=== PATIENT | male | born 1965 | race Caucasian/White ===

== ENCOUNTER 2022-02-22 21:20 | Emergency (ER) | payer OTHER ==
[2022-02-22 21:57] VITALS: BP 140/60; PULSE 77; TEMP 98.7; BMI 26.6
== END 2022-02-22 22:48 | disposition home or self-care (01) ==
LOC: FER 21:20
DX: L25.5 Unspecified contact dermatitis due to plants, except food (principal)
CPT/HCPCS: 99281-25

== ENCOUNTER 2024-06-16 14:38 | Emergency (ER) | payer OTHER ==
[2024-06-16] MEDS ORDERED: METHOCARBAMOL 500 MG TABLET ONE (15:12)
[2024-06-16] MEDS ORDERED: KETOROLAC TROMETHAMINE 30 MG/1 ML VIAL ONE (15:13)
[2024-06-16] MEDS ORDERED: LIDOCAINE 5% TOPICAL PATCH ONE (15:13)
[2024-06-16] MEDS: LIDOCAINE 5% TOPICAL PATCH TP ONE (15:20)
[2024-06-16] MEDS: METHOCARBAMOL 500 MG TABLET PO ONE (15:20)
[2024-06-16] MEDS: KETOROLAC TROMETHAMINE 30 MG/1 ML VIAL IM ONE (15:21)
[2024-06-16 15:46] VITALS: BP 152/80; PULSE 80; RESP 16; TEMP 98.4; BMI 27.4
[2024-06-16] MEDS ORDERED: LIDOCAINE PATCH REMOVAL MC SCH (22:00)
== END 2024-06-16 17:14 | disposition home or self-care (01) ==
LOC: FER 14:38
PROC: 3E0133Z Introduction of Anti-inflammatory into Subcutaneous Tissue, Percutaneous Approach (ICD-10-PCS; principal; 2024-06-16)
DX: M54.50 Low back pain, unspecified (principal); X50.1XXA Overexertion from prolonged static or awkward postures, initial encounter
CPT/HCPCS: 81003; 99284-25

== ENCOUNTER 2024-06-24 12:32 | Inpatient (IN) | payer OTHER ==
[2024-06-24] MEDS ORDERED: PIPERACILLIN/TAZOB 3.375 GM 3.375 GM/50 ML BAG IVPB ONE (13:33)
[2024-06-24] MEDS: PIPERACILLIN/TAZOB 3.375 GM 3.375 GM in DEXTROSE 5%-WATER - 50 ML IVPB ONE (13:51)
[2024-06-24] MEDS: LACTATED RINGERS SOLUTION 1000 ML INFUS.BAG IV ONE (13:51)
[2024-06-24 14:08] LABS: BASO % 0.8 % (0-2.0); EOS % 0.8 % (0-4.5); LYMPH % 40.4 % (8-40); MCH 33.2 pg (25.7-33.7); MCHC 34.1 g/dl (32.0-35.9); MEAN CELL VOLUME 97.5 fl (80-96); MEAN PLT VOLUME 9.1 fl (7.5-11.1); MONO % 11.9 % (3.8-10.2); NEUT % 46.1 % (42.8-82.8); PLATELET COUNT 223 10^3/uL (134-434); RBC 4.52 M/mm3 (4.00-5.60); WHITE BLOOD COUNT 4.7 K/mm3 (4.0-10.0)
[2024-06-24] MEDS ORDERED: VANCOMYCIN 1 GRAM (PRE-DOCKED) 1,000 MG/250 ML BAG IVPB ONE (14:08)
[2024-06-24 14:15] LABS: INR 1.1 (0.83-1.09); PROTHROMBIN TIME (PATIENT) 12.6 SEC (9.7-13.0)
[2024-06-24] MEDS: VANCOMYCIN 1,000 MG in DEXTROSE 5%-WATER - 250 ML IVPB ONE (14:17)
[2024-06-24 14:18] LABS: ACTIVATED PTT 30.6 SECONDS (25.2-36.5)
[2024-06-24 14:21] LABS: URINE APPEARANCE TURBID; URINE BILIRUBIN NEGATIVE (NEGATIVE); URINE COLOR YELLOW; URINE GLUCOSE (UA) NEGATIVE (NEGATIVE); URINE KETONE NEGATIVE (NEGATIVE); URINE LEUK ESTERASE NEGATIVE (NEGATIVE); URINE NITRITE NEGATIVE (NEGATIVE); URINE PROTEIN NEGATIVE (NEGATIVE); URINE UROBILINOGEN 0.2 mg/dL (0.2-1.0)
[2024-06-24 14:32] LABS: POTASSIUM 4.3 mmol/L (3.5-5.1)
[2024-06-24 14:34] LABS: ALBUMIN 3.2 g/dl (3.4-5.0); BLOOD UREA NITROGEN 11.8 mg/dL (7-18)
[2024-06-24 14:38] LABS: CREATININE 0.8 mg/dL (0.55-1.3)
[2024-06-24 14:39] LABS: TOT PROT 7.1 g/dl (6.4-8.2)
[2024-06-24 14:51] LABS: BILIRUBIN,TOTAL 0.7 mg/dL (0.2-1)
[2024-06-24 14:54] LABS: ERYTHROCYTE SEDIMENTATION RATE 6 mm/hr (0-20)
[2024-06-25 02:17] VITALS: BMI 28.0
[2024-06-25] MEDS ORDERED: ACETAMINOPHEN 1000 MG/100 ML BAG IVPB PRN (08:17)
[2024-06-25] MEDS ORDERED: SENNOSIDES/DOCUSATE COMBO (SENNA PLUS) TABLET (UD) PO PRN (08:19)
[2024-06-25 09:49] LABS: HEMATOCRIT 47.6 % (35.4-49); MCH 33.2 pg (25.7-33.7); MCHC 33.5 g/dl (32.0-35.9); MEAN PLT VOLUME 9.3 fl (7.5-11.1); PLATELET COUNT 232 10^3/uL (134-434); RDW 13.1 % (11.9-15.9); WHITE BLOOD COUNT 5.6 K/mm3 (4.0-10.0)
[2024-06-25] MEDS: PIPERACILLIN/TAZOB 3.375 GM 3.375 GM in DEXTROSE 5%-WATER - 50 ML IVPB SCH ×2 (10:03→14:51)
[2024-06-25] MEDS: ENOXAPARIN NA (PORCINE) 40 MG/0.4 ML DISP.SYRIN SQ SCH (10:03)
[2024-06-25] MEDS: VANCOMYCIN/WATER FOR INJ (PEG) 1,000 MG/200 ML BAG IVPB SCH (10:40)
[2024-06-25] MEDS: VANCOMYCIN 1 GM PREMIX - 1 GM/200 ML BAG IVPB SCH ×2 (10:49→14:50)
[2024-06-25 11:41] LABS: POTASSIUM 4.1 mmol/L (3.5-5.1)
[2024-06-25 11:44] LABS: CALCIUM 9.7 mg/dL (8.5-10.1)
[2024-06-25 11:45] LABS: ALBUMIN 3.4 g/dl (3.4-5.0); BLOOD UREA NITROGEN 8.7 mg/dL (7-18)
[2024-06-25 11:48] LABS: CREATININE 0.9 mg/dL (0.55-1.3)
[2024-06-25 11:49] LABS: BILIRUBIN,TOTAL 0.6 mg/dL (0.2-1); TOT PROT 7.4 g/dl (6.4-8.2)
[2024-06-25] MEDS: FAMOTIDINE 20 MG TABLET PO SCH (14:12)
[2024-06-26 07:16] LABS: BASO % 0.7 % (0-2.0); EOS % 1.1 % (0-4.5); HEMATOCRIT 44.8 % (35.4-49); HEMOGLOBIN 14.9 GM/dL (11.7-16.9); LYMPH % 44.7 % (8-40); MCH 33.2 pg (25.7-33.7); MCHC 33.2 g/dl (32.0-35.9); MEAN CELL VOLUME 99.9 fl (80-96); MEAN PLT VOLUME 10.4 fl (7.5-11.1); MONO % 10.4 % (3.8-10.2); NEUT % 43.1 % (42.8-82.8); PLATELET COUNT 212 10^3/uL (134-434); RBC 4.48 M/mm3 (4.00-5.60); RDW 13.2 % (11.9-15.9); WHITE BLOOD COUNT 6.4 K/mm3 (4.0-10.0)
[2024-06-26 07:36] LABS: POTASSIUM 4.1 mmol/L (3.5-5.1)
[2024-06-26 07:46] LABS: CALCIUM 9.6 mg/dL (8.5-10.1)
[2024-06-26 07:47] LABS: BLOOD UREA NITROGEN 10.6 mg/dL (7-18)
[2024-06-26 07:50] LABS: CREATININE 0.8 mg/dL (0.55-1.3)
[2024-06-26 14:08] VITALS: RESP 18
[2024-06-26] MEDS: amLODIPine BESYLATE 5 MG TABLET (FP) PO SCH (15:07)
[2024-06-27 08:38] LABS: INR 0.91 (0.83-1.09); PROTHROMBIN TIME (PATIENT) 10.3 SEC (9.7-13.0)
[2024-06-27 08:41] LABS: ACTIVATED PTT 32.2 SECONDS (25.2-36.5)
[2024-06-27] MEDS: KETOROLAC TROMETHAMINE 30 MG/1 ML VIAL IVPUSH PRN (09:24)
[2024-06-27 13:49] VITALS: BP 148/92; PULSE 69; TEMP 97.7
== END 2024-06-27 15:33 | disposition left against medical advice (07) | DRG 344 ==
LOC: JER 12:32 → JERBED 14:06 → J7W 19:52 → OBSVTOIN 06-26 14:06
PROVIDERS: ADMIT Internal Medicine; ATTEND Nurse Practitioner
DX: M46.26 Osteomyelitis of vertebra, lumbar region (principal); G06.1 Intraspinal abscess and granuloma; F17.200 Nicotine dependence, unspecified, uncomplicated
CPT/HCPCS: 36415; 72100-TC-FY; 72148-TC; 72158-TC; 80048; 80053; 81003; 83036; 84155; 84165; 85025; 85027; 85610; 85651; 85730; 86140; 87040; 87086; 93005; 93010; 99285-25; G0378